=== PATIENT | female | born 1990 | race Caucasian/White ===

== ENCOUNTER 2021-12-03 18:29 | Emergency (ER) | payer OTHER ==
[2021-12-03] MEDS ORDERED: Alum Hydrox/Mag Hydrox/Simeth 30 ML, Lidocaine 2% 15 ML PO ONE ×2 (18:40)
[2021-12-03 18:49] VITALS: PULSE 65
[2021-12-03 18:51] VITALS: BP 128/70
[2021-12-03] MEDS ORDERED: Famotidine 20 MG/2 ML SDV IVPUSH ONE (18:53)
[2021-12-03] MEDS ORDERED: Sodium Chloride 0.9% 1,000 ML IV ONE (19:06)
[2021-12-03 19:10] LABS: CHLORIDE,CL 105 mEq/L (98-106); SODIUM,NA 143 mEq/L (136-145)
[2021-12-03] MEDS ORDERED: Morphine 2 MG/ML SYRINGE IVPUSH ONE (19:15)
[2021-12-03] MEDS ORDERED: Ondansetron 4 MG/2 ML SDV IVPUSH ONE (19:16)
[2021-12-03] MEDS ORDERED: Dicyclomine 10 MG Cap PO ONE (19:29)
[2021-12-03] MEDS ORDERED: HYDROmorphone 1 MG/ML Syringe IVPUSH ONE ×2 (19:48→21:48)
[2021-12-03] MEDS ORDERED: Sodium Chloride 0.9% 1,000 ML IV SCH (20:45)
[2021-12-03] MEDS: Iopamidol 755 Mg/ML 100 ML Bottle IVPUSH ONE ×2 (21:45→21:51)
== END 2021-12-03 23:00 ==
LOC: CC.ED 18:29
DX: K82.8 Other specified diseases of gallbladder (principal)
CPT/HCPCS: 36415; 74177; 80053; 81003; 82150; 83690; 83735; 85025; 96374; 96375; 96376; 99284; 99285-25; A9270-GY; J1170; J2270; J2405; J3490; J7030; Q9967